=== PATIENT | male | born 1935 | race Caucasian/White ===

== ENCOUNTER → 2023-11-27 09:34 | Outpatient (REF) | payer OTHER, SELFPAY ==
[2023-11-27 10:25] LABS: % Basophils 0.5 % (0-2); % Immature Granulocytes 0.2 % (0-0.5); % Lymphocytes 28.6 % (20.5-51.1); % Monocytes 15.3 % (1.7-9.3); % Neutrophils 51.4 % (42.2-75.2); Absolute Eosinophils 0.2 10^3/uL (0-0.7); Absolute Lymphocytes 1.7 10^3/uL (1.2-3.4); Absolute Monocytes 0.9 10^3/uL (0.1-0.6); Hematocrit 37.1 % (39.0-52.0); Hemoglobin 12.8 g/dL (13.0-18.0); Mean Corp Hgb Conc. 34.5 g/dL (33.0-37.0); Mean Corpuscular Hgb 33.9 pg (27.0-31.0); Mean Corpuscular Volume 98.1 fL (80.0-94.0); Mean Platelet Volume 10.5 fL (7.4-10.4); Nucleated Red Blood Cells % 0 % (-); Platelet Count 190 10^3/uL (130-400); Red Blood Cell Count 3.78 10^6/uL (4.70-6.10); White Blood Cell Count 5.8 10^3/uL (4.8-10.8)
[2023-11-27 11:11] LABS: ALT (SGPT) 18 U/L (0-50); AST (SGOT) 32 U/L (17-59); Albumin 3.7 g/dl (3.5-5.0); Alkaline Phosphatase 98 U/L (38-126); Blood Urea Nitrogen 30 mg/dl (9-20); Calcium 9.3 mg/dl (8.4-10.2); Carbon Dioxide 28 mmol/L (22-30); Chloride 105 mmol/L (98-107); Glucose 90 mg/dl (70-99); Iron 223 ug/dl (49-181); Potassium 4.2 mmol/L (3.5-5.1); Sodium 140 mmol/L (135-145); Total Bilirubin 0.9 mg/dl (0.2-1.3); Total Protein 7.4 g/dl (6.3-8.2); eGFR > 60.00
[2023-11-27 11:19] LABS: Percent Saturation 100 % (20-50); Total Iron Binding Capacity 222 ug/dl (261-462)
[2023-11-27 11:37] LABS: PSA, Total - Screen 1.03 ng/ml (0.0-4.0)
[2023-11-27 11:41] LABS: Ferritin 44.7 ng/ml (17.9-464.0)
[2023-11-27 19:23] LABS: AFP Male/Tumor Marker 1.22 ng/ml
== END ==
LOC: REG 09:34
PROVIDERS: ATTENDING PHYSICIAN Internal Medicine Transplant Hepatology; FAMILY PHYSICIAN Family Medicine; REFERRING PHYSICIAN Internal Medicine
DX: Z12.5 Encounter for screening for malignant neoplasm of prostate (principal); E83.110 Hereditary hemochromatosis
CPT/HCPCS: 36415; 80053; 82105; 82728; 83540; 83550; 85025; 85610; G0103

== ENCOUNTER → 2023-12-22 12:51 | Outpatient (REF) | payer OTHER, SELFPAY ==
[2023-12-22 13:16] LABS: % Basophils 0.2 % (0-2); % Eosinophils 1.6 % (0-6); % Immature Granulocytes 0.4 % (0-0.5); % Lymphocytes 17.9 % (20.5-51.1); % Monocytes 15.3 % (1.7-9.3); % Neutrophils 64.6 % (42.2-75.2); Absolute Eosinophils 0.2 10^3/uL (0-0.7); Absolute Lymphocytes 1.8 10^3/uL (1.2-3.4); Absolute Monocytes 1.5 10^3/uL (0.1-0.6); Absolute Neutrophils 6.5 10^3/uL (1.4-6.5); Hematocrit 36.4 % (39.0-52.0); Hemoglobin 12.7 g/dL (13.0-18.0); Mean Corp Hgb Conc. 34.9 g/dL (33.0-37.0); Mean Corpuscular Hgb 33.7 pg (27.0-31.0); Mean Corpuscular Volume 96.6 fL (80.0-94.0); Nucleated Red Blood Cells % 0 % (-); Platelet Count 189 10^3/uL (130-400); Red Blood Cell Count 3.77 10^6/uL (4.70-6.10); White Blood Cell Count 10.1 10^3/uL (4.8-10.8)
[2023-12-22 13:31] LABS: ALT (SGPT) 19 U/L (0-50); AST (SGOT) 33 U/L (17-59); Albumin 3.7 g/dl (3.5-5.0); Alkaline Phosphatase 104 U/L (38-126); Blood Urea Nitrogen 29 mg/dl (9-20); Calcium 9.2 mg/dl (8.4-10.2); Carbon Dioxide 27 mmol/L (22-30); Chloride 105 mmol/L (98-107); Glucose 72 mg/dl (70-99); Potassium 4.4 mmol/L (3.5-5.1); Sodium 137 mmol/L (135-145); Total Bilirubin 0.6 mg/dl (0.2-1.3); Total Protein 7.4 g/dl (6.3-8.2); eGFR 58.53
[2023-12-22 13:38] LABS: NT-proBNP 1040 pg/ml
== END ==
LOC: REG 12:51
PROVIDERS: ATTENDING PHYSICIAN Registered Nurse Ambulatory Care
DX: R07.81 Pleurodynia (principal); R06.02 Shortness of breath
CPT/HCPCS: 36415; 71046; 80053; 83880; 85025

== ENCOUNTER → 2024-01-05 11:55 | Outpatient (REF) | payer OTHER, SELFPAY ==
[2024-01-05 12:48] LABS: Blood Urea Nitrogen 28 mg/dl (9-20); Calcium 9.5 mg/dl (8.4-10.2); Carbon Dioxide 25 mmol/L (22-30); Chloride 104 mmol/L (98-107); Glucose 141 mg/dl (70-99); Potassium 4.3 mmol/L (3.5-5.1); Sodium 137 mmol/L (135-145); eGFR > 60.00
== END ==
LOC: REG 11:55
PROVIDERS: ATTENDING PHYSICIAN Registered Nurse
DX: H81.11 Benign paroxysmal vertigo, right ear (principal); R42 Dizziness and giddiness
CPT/HCPCS: 36415; 80048

== ENCOUNTER → 2024-02-29 10:36 | Outpatient (REF) | payer OTHER, SELFPAY ==
[2024-02-29 11:28] LABS: % Basophils 0.5 % (0-2); % Eosinophils 4.1 % (0-6); % Immature Granulocytes 0.2 % (0-0.5); % Monocytes 13.4 % (1.7-9.3); % Neutrophils 54.8 % (42.2-75.2); Absolute Eosinophils 0.2 10^3/uL (0-0.7); Absolute Lymphocytes 1.6 10^3/uL (1.2-3.4); Absolute Monocytes 0.8 10^3/uL (0.1-0.6); Absolute Neutrophils 3.2 10^3/uL (1.4-6.5); Hematocrit 37.6 % (39.0-52.0); Hemoglobin 12.9 g/dL (13.0-18.0); Mean Corp Hgb Conc. 34.3 g/dL (33.0-37.0); Mean Corpuscular Hgb 33.9 pg (27.0-31.0); Mean Corpuscular Volume 98.7 fL (80.0-94.0); Mean Platelet Volume 10.4 fL (7.4-10.4); Nucleated Red Blood Cells % 0 % (-); Platelet Count 202 10^3/uL (130-400); Red Blood Cell Count 3.81 10^6/uL (4.70-6.10); Red Cell Dist. Width 14.2 % (11.5-14.5); White Blood Cell Count 5.8 10^3/uL (4.8-10.8)
[2024-02-29 11:36] LABS: INR 1.17; PT 14.9 Sec (11.4-14.6)
[2024-02-29 12:02] LABS: ALT (SGPT) 18 U/L (0-50); AST (SGOT) 34 U/L (17-59); Albumin 3.8 g/dl (3.5-5.0); Alkaline Phosphatase 99 U/L (38-126); Blood Urea Nitrogen 29 mg/dl (9-20); Calcium 9.5 mg/dl (8.4-10.2); Carbon Dioxide 26 mmol/L (22-30); Chloride 106 mmol/L (98-107); Glucose 105 mg/dl (70-99); Iron 214 ug/dl (49-181); Potassium 4.6 mmol/L (3.5-5.1); Sodium 141 mmol/L (135-145); Total Bilirubin 0.9 mg/dl (0.2-1.3); Total Protein 7.4 g/dl (6.3-8.2); eGFR 58.53
[2024-02-29 12:12] LABS: Percent Saturation 98 % (20-50); Total Iron Binding Capacity 217 ug/dl (261-462)
[2024-02-29 12:32] LABS: Ferritin 48.7 ng/ml (17.9-464.0)
[2024-02-29 18:35] LABS: AFP Male/Tumor Marker 1.42 ng/ml
== END ==
LOC: REG 10:36
PROVIDERS: ATTENDING PHYSICIAN Internal Medicine Transplant Hepatology; FAMILY PHYSICIAN Internal Medicine; REFERRING PHYSICIAN Family Medicine
DX: E83.110 Hereditary hemochromatosis (principal)
CPT/HCPCS: 36415; 80053; 82105; 82728; 83540; 83550; 85025; 85610

== ENCOUNTER → 2024-03-07 12:59 | Outpatient (REF) | payer OTHER, SELFPAY | LOC: RAD 12:59 | PROVIDERS: ATTENDING PHYSICIAN Internal Medicine Transplant Hepatology; FAMILY PHYSICIAN Family Medicine; REFERRING PHYSICIAN Internal Medicine | DX: E83.110 Hereditary hemochromatosis (principal) | CPT/HCPCS: 76700 ==

== ENCOUNTER → 2024-03-13 10:18 | Outpatient (REF) | payer OTHER, SELFPAY | LOC: HWRAD 10:18 | PROVIDERS: ATTENDING PHYSICIAN Internal Medicine; FAMILY PHYSICIAN Family Medicine | DX: R06.09 Other forms of dyspnea (principal) | CPT/HCPCS: 71250 ==

== ENCOUNTER → 2024-04-09 12:42 | Outpatient (REF) | payer OTHER, SELFPAY | LOC: RSP 12:42 | PROVIDERS: ATTENDING PHYSICIAN Internal Medicine; FAMILY PHYSICIAN Family Medicine | DX: R06.09 Other forms of dyspnea (principal) | CPT/HCPCS: 94727; 94729; 88738; 94010 ==

== ENCOUNTER → 2024-04-26 09:37 | Outpatient (REF) | payer OTHER, SELFPAY | LOC: RST 09:37 | PROVIDERS: ATTENDING PHYSICIAN Internal Medicine; FAMILY PHYSICIAN Family Medicine | DX: J69.0 Pneumonitis due to inhalation of food and vomit (principal) | CPT/HCPCS: 74230; 92611 ==

== ENCOUNTER → 2024-04-30 09:12 | Outpatient (REF) | payer OTHER, SELFPAY | LOC: RAD 09:12 | PROVIDERS: ATTENDING PHYSICIAN Internal Medicine; FAMILY PHYSICIAN Family Medicine | DX: J69.0 Pneumonitis due to inhalation of food and vomit (principal) | CPT/HCPCS: 74221 ==

== ENCOUNTER → 2024-08-02 09:29 | Outpatient (REF) | payer OTHER, SELFPAY ==
[2024-08-02 11:14] LABS: % Basophils 0.5 % (0-2); % Eosinophils 4.5 % (0-6); % Immature Granulocytes 0.2 % (0-0.5); % Lymphocytes 26.4 % (20.5-51.1); % Monocytes 13.6 % (1.7-9.3); % Neutrophils 54.8 % (42.2-75.2); Absolute Eosinophils 0.3 10^3/uL (0-0.7); Absolute Lymphocytes 1.5 10^3/uL (1.2-3.4); Absolute Monocytes 0.8 10^3/uL (0.1-0.6); Absolute Neutrophils 3.2 10^3/uL (1.4-6.5); Hematocrit 38.9 % (39.0-52.0); Hemoglobin 13.1 g/dL (13.0-18.0); Mean Corp Hgb Conc. 33.7 g/dL (33.0-37.0); Mean Corpuscular Hgb 34.3 pg (27.0-31.0); Mean Corpuscular Volume 101.8 fL (80.0-94.0); Mean Platelet Volume 10.7 fL (7.4-10.4); Nucleated Red Blood Cells % 0 % (-); Platelet Count 172 10^3/uL (130-400); Red Blood Cell Count 3.82 10^6/uL (4.70-6.10); Red Cell Dist. Width 13.9 % (11.5-14.5); White Blood Cell Count 5.8 10^3/uL (4.8-10.8)
[2024-08-02 11:25] LABS: INR 1.04; PT 13.9 Sec (11.4-14.6)
[2024-08-02 11:26] LABS: AST (SGOT) 34 U/L (17-59); Albumin 3.7 g/dl (3.5-5.0); Alkaline Phosphatase 95 U/L (38-126); Blood Urea Nitrogen 29 mg/dl (9-20); Calcium 9.1 mg/dl (8.4-10.2); Carbon Dioxide 28 mmol/L (22-30); Chloride 103 mmol/L (98-107); GGTP 43 U/L (15-73); Glucose 99 mg/dl (70-99); Iron 168 ug/dl (49-181); Potassium 4.3 mmol/L (3.5-5.1); Sodium 142 mmol/L (135-145); Total Bilirubin 0.6 mg/dl (0.2-1.3); Total Protein 7.3 g/dl (6.3-8.2); eGFR 58.17
[2024-08-02 11:36] LABS: ALT (SGPT) 19 U/L (0-50); Percent Saturation 71 % (20-50); Total Iron Binding Capacity 236 ug/dl (261-462)
[2024-08-02 11:57] LABS: AFP Male/Tumor Marker 1.54 ng/ml
[2024-08-02 12:00] LABS: Ferritin 47.4 ng/ml (17.9-464.0)
== END ==
LOC: HWRAD 09:29
PROVIDERS: ATTENDING PHYSICIAN Internal Medicine Transplant Hepatology; FAMILY PHYSICIAN Family Medicine; REFERRING PHYSICIAN Internal Medicine
DX: E83.110 Hereditary hemochromatosis (principal)
CPT/HCPCS: 36415; 76700; 80053; 82105; 82728; 82977; 83540; 83550; 85025; 85610

== ENCOUNTER → 2024-11-04 08:33 | Outpatient (REF) | payer OTHER, SELFPAY ==
[2024-11-04 09:23] LABS: % Basophils 0.6 % (0-2); % Eosinophils 4.2 % (0-6); % Immature Granulocytes 0.2 % (0-0.5); % Lymphocytes 27.2 % (20.5-51.1); % Monocytes 13.2 % (1.7-9.3); % Neutrophils 54.6 % (42.2-75.2); Absolute Eosinophils 0.2 10^3/uL (0-0.7); Absolute Lymphocytes 1.4 10^3/uL (1.2-3.4); Absolute Monocytes 0.7 10^3/uL (0.1-0.6); Absolute Neutrophils 2.9 10^3/uL (1.4-6.5); Hematocrit 36.8 % (39.0-52.0); Hemoglobin 12.3 g/dL (13.0-18.0); Mean Corp Hgb Conc. 33.4 g/dL (33.0-37.0); Mean Corpuscular Hgb 33.7 pg (27.0-31.0); Mean Corpuscular Volume 100.8 fL (80.0-94.0); Mean Platelet Volume 10.6 fL (7.4-10.4); Nucleated Red Blood Cells % 0 % (-); Platelet Count 171 10^3/uL (130-400); Red Blood Cell Count 3.65 10^6/uL (4.70-6.10); Red Cell Dist. Width 14.2 % (11.5-14.5); White Blood Cell Count 5.3 10^3/uL (4.8-10.8)
[2024-11-04 10:00] LABS: ALT (SGPT) 19 U/L (0-50); AST (SGOT) 31 U/L (17-59); Albumin 3.6 g/dl (3.5-5.0); Alkaline Phosphatase 101 U/L (38-126); Blood Urea Nitrogen 27 mg/dl (9-20); Calcium 9.2 mg/dl (8.4-10.2); Carbon Dioxide 26 mmol/L (22-30); Chloride 106 mmol/L (98-107); Glucose 96 mg/dl (70-99); HDL Cholesterol 43 mg/dl; LDL Cholesterol, Calculated 79 mg/dl; Potassium 4.3 mmol/L (3.5-5.1); Sodium 138 mmol/L (135-145); Total Bilirubin 0.9 mg/dl (0.2-1.3); Total Cholesterol 135 mg/dl (50-199); Total Protein 6.9 g/dl (6.3-8.2); Triglyceride 67 mg/dl (10-149); Very Low Density Lipoprotein 13 mg/dl (0-30); eGFR 58.17
[2024-11-04 10:15] LABS: Vitamin D, 25-OH*** 100 ng/mL (30-80)
[2024-11-04 10:37] LABS: TSH Reflex To Free T4 2.41 uIU/ml (0.47-4.68)
[2024-11-04 10:41] LABS: Ferritin 57.5 ng/ml (17.9-464.0)
== END ==
LOC: REG 08:33
PROVIDERS: ATTENDING PHYSICIAN Family Medicine
DX: Z13.6 Encounter for screening for cardiovascular disorders (principal); Z13.29 Encounter for screening for other suspected endocrine disorder; R53.83 Other fatigue; Z13.1 Encounter for screening for diabetes mellitus; E55.9 Vitamin D deficiency, unspecified; E83.110 Hereditary hemochromatosis
CPT/HCPCS: 36415; 80053; 80061; 82306; 82728; 84443; 85025

== ENCOUNTER → 2025-01-13 10:17 | Outpatient (REF) | payer OTHER, SELFPAY | LOC: HWRAD 10:17 | PROVIDERS: ATTENDING PHYSICIAN Internal Medicine; FAMILY PHYSICIAN Family Medicine | DX: E83.119 Hemochromatosis, unspecified (principal); R91.8 Other nonspecific abnormal finding of lung field; J69.0 Pneumonitis due to inhalation of food and vomit | CPT/HCPCS: 71250 ==

== ENCOUNTER → 2025-01-20 12:29 | Outpatient (REF) | payer OTHER, SELFPAY | LOC: HWRCS 12:29 | PROVIDERS: ATTENDING PHYSICIAN Internal Medicine Cardiovascular Disease; FAMILY PHYSICIAN Family Medicine | DX: R06.09 Other forms of dyspnea (principal); R06.02 Shortness of breath; R00.1 Bradycardia, unspecified | CPT/HCPCS: 93306 ==

== ENCOUNTER → 2025-01-22 12:41 | Outpatient (REF) | payer OTHER, SELFPAY | LOC: RCS 12:41 | PROVIDERS: ATTENDING PHYSICIAN Internal Medicine Cardiovascular Disease; FAMILY PHYSICIAN Family Medicine; OTHER PHYSICIAN Internal Medicine | DX: R06.09 Other forms of dyspnea (principal); R06.02 Shortness of breath; R00.1 Bradycardia, unspecified | CPT/HCPCS: 93017; 93350 ==

== ENCOUNTER → 2025-02-10 09:53 | Outpatient (REF) | payer OTHER, SELFPAY ==
[2025-02-10 10:59] LABS: % Basophils 0.5 % (0-2); % Eosinophils 4.2 % (0-6); % Immature Granulocytes 0.2 % (0-0.5); % Lymphocytes 23.3 % (20.5-51.1); % Monocytes 12.6 % (1.7-9.3); % Neutrophils 59.2 % (42.2-75.2); Absolute Eosinophils 0.3 10^3/uL (0-0.7); Absolute Lymphocytes 1.5 10^3/uL (1.2-3.4); Absolute Monocytes 0.8 10^3/uL (0.1-0.6); Absolute Neutrophils 3.8 10^3/uL (1.4-6.5); Hemoglobin 13.4 g/dL (13.0-18.0); Mean Corp Hgb Conc. 34.4 g/dL (33.0-37.0); Mean Corpuscular Hgb 34.6 pg (27.0-31.0); Mean Corpuscular Volume 100.8 fL (80.0-94.0); Mean Platelet Volume 10.4 fL (7.4-10.4); Nucleated Red Blood Cells % 0 % (-); Platelet Count 191 10^3/uL (130-400); Red Blood Cell Count 3.87 10^6/uL (4.70-6.10); White Blood Cell Count 6.4 10^3/uL (4.8-10.8)
[2025-02-10 11:12] LABS: INR 1.06; PT 14.1 Sec (11.4-14.6)
[2025-02-10 11:37] LABS: ALT (SGPT) 23 U/L (0-50); AST (SGOT) 34 U/L (17-59); Alkaline Phosphatase 108 U/L (38-126); Blood Urea Nitrogen 28 mg/dl (9-20); Calcium 9.1 mg/dl (8.4-10.2); Carbon Dioxide 26 mmol/L (22-30); Chloride 107 mmol/L (98-107); GGTP 49 U/L (15-73); Glucose 91 mg/dl (70-99); Iron 169 ug/dl (49-181); Potassium 4.7 mmol/L (3.5-5.1); Sodium 139 mmol/L (135-145); Total Bilirubin 0.8 mg/dl (0.2-1.3); Total Protein 7.8 g/dl (6.3-8.2); eGFR 58.17
[2025-02-10 11:53] LABS: Ferritin 81.2 ng/ml (17.9-464.0)
[2025-02-10 12:48] LABS: Percent Saturation 76 % (20-50); Total Iron Binding Capacity 222 ug/dl (261-462)
[2025-02-10 18:39] LABS: AFP Male/Tumor Marker 1.74 ng/ml
== END ==
LOC: RAD 09:53
PROVIDERS: ATTENDING PHYSICIAN Internal Medicine Transplant Hepatology; FAMILY PHYSICIAN Family Medicine; OTHER PHYSICIAN Internal Medicine
DX: E83.110 Hereditary hemochromatosis (principal)
CPT/HCPCS: 36415; 80053; 82105; 82728; 82977; 83540; 83550; 85025; 85610

== ENCOUNTER → 2025-02-12 08:58 | Outpatient (REF) | payer OTHER, SELFPAY | LOC: HWRAD 08:58 | PROVIDERS: ATTENDING PHYSICIAN Internal Medicine Transplant Hepatology; FAMILY PHYSICIAN Family Medicine | DX: E83.110 Hereditary hemochromatosis (principal) | CPT/HCPCS: 76700 ==

== ENCOUNTER → 2025-03-11 13:19 | Outpatient (REF) | payer OTHER, SELFPAY | LOC: RSP 13:19 | PROVIDERS: ATTENDING PHYSICIAN Internal Medicine | DX: R06.00 Dyspnea, unspecified (principal) | CPT/HCPCS: 94727; 94729; 36415; 94010; 94761 ==

== ENCOUNTER → 2025-05-05 08:54 | Outpatient (REF) | payer OTHER, SELFPAY ==
[2025-05-05 09:33] LABS: Hematocrit 37.0 % (39.0-52.0); Hemoglobin 12.5 g/dL (13.0-18.0); Mean Corp Hgb Conc. 33.8 g/dL (33.0-37.0); Mean Corpuscular Volume 100.3 fL (80.0-94.0); Nucleated Red Blood Cells % 0 % (-); Platelet Count 175 10^3/uL (130-400); Red Cell Dist. Width 14.1 % (11.5-14.5)
[2025-05-05 10:17] LABS: ALT (SGPT) 20 U/L (0-50); AST (SGOT) 32 U/L (17-59); Albumin 3.7 g/dl (3.5-5.0); Alkaline Phosphatase 90 U/L (38-126); Blood Urea Nitrogen 34 mg/dl (9-20); Calcium 9.0 mg/dl (8.4-10.2); Carbon Dioxide 27 mmol/L (22-30); Chloride 108 mmol/L (98-107); Glucose 95 mg/dl (70-99); HDL Cholesterol 46 mg/dl; LDL Cholesterol, Calculated 71 mg/dl; Potassium 4.6 mmol/L (3.5-5.1); Sodium 141 mmol/L (135-145); Total Protein 7.3 g/dl (6.3-8.2); Very Low Density Lipoprotein 12 mg/dl (0-30); eGFR 57.81
[2025-05-05 10:45] LABS: PSA, Total - Screen 0.97 ng/ml (0.0-4.0)
[2025-05-05 10:49] LABS: Ferritin 72.3 ng/ml (17.9-464.0)
== END ==
LOC: REG 08:54
PROVIDERS: ATTENDING PHYSICIAN Family Medicine; REFERRING PHYSICIAN Internal Medicine
DX: C67.2 Malignant neoplasm of lateral wall of bladder (principal); Z12.5 Encounter for screening for malignant neoplasm of prostate; E83.110 Hereditary hemochromatosis; R53.83 Other fatigue; Z13.1 Encounter for screening for diabetes mellitus; Z13.6 Encounter for screening for cardiovascular disorders
CPT/HCPCS: 36415; 80053; 80061; 82728; 85025; G0103

== ENCOUNTER → 2025-08-14 08:46 | Outpatient (REF) | payer OTHER, SELFPAY ==
[2025-08-14 09:29] LABS: Hematocrit 38.6 % (39.0-52.0); Hemoglobin 13.0 g/dL (13.0-18.0); Mean Corp Hgb Conc. 33.7 g/dL (33.0-37.0); Mean Corpuscular Volume 102.9 fL (80.0-94.0); Nucleated Red Blood Cells % 0 % (-); Platelet Count 193 10^3/uL (130-400); Red Cell Dist. Width 13.9 % (11.5-14.5)
[2025-08-14 10:45] LABS: ALT (SGPT) 19 U/L (0-50); AST (SGOT) 30 U/L (17-59); Albumin 3.8 g/dl (3.5-5.0); Alkaline Phosphatase 83 U/L (38-126); Blood Urea Nitrogen 31 mg/dl (9-20); Calcium 9.2 mg/dl (8.4-10.2); Carbon Dioxide 32 mmol/L (22-30); Chloride 104 mmol/L (98-107); Glucose 95 mg/dl (70-99); Potassium 4.5 mmol/L (3.5-5.1); Sodium 138 mmol/L (135-145); Total Protein 7.4 g/dl (6.3-8.2); eGFR 48.04
== END ==
LOC: REG 08:46
PROVIDERS: ATTENDING PHYSICIAN Nurse Practitioner Adult Health; FAMILY PHYSICIAN Family Medicine; REFERRING PHYSICIAN Internal Medicine
DX: R03.0 Elevated blood-pressure reading, without diagnosis of hypertension (principal)
CPT/HCPCS: 36415; 80053; 85025